=== PATIENT | female | born 1955 | race Caucasian/White ===

== ENCOUNTER 2021-10-20 09:46 | Outpatient (CLI) | payer MEDICARE ==
--- NOTE | 2021-10-20 17:25 | DEXA Report ---
PROCEDURE: Dexa Spine and/or Hip INDICATIONS: DEXA TECHNIQUE: Dual energy x-ray absorptiometry (DXA) was performed on a [employer] System. Regions measur ed are the AP Spine, femoral neck, and if needed forearm. COMPARISON: None. FINDINGS: Lumbar Spine: Bone Mineral Density 1.338 g/cm/cm, T score 1.3, normal Left Hip: Bone Mineral Density 0.873 g/cm/cm, T score -1.1, osteopenia Left Femoral Neck: Bone Mineral Density 0.870 g/cm/cm, T score -1.2, osteopenia (T score greater or equal to -1.0: NORMAL) (T score from -1.1 to -2.4: OSTEOPENIA) (T score less than or equal to -2.5 to: OSTEOPOROSIS) Impression: Left hip osteopenia. Patients with diagnosis of osteoporosis or osteopenia should have regular bone mineral density assess ment. For those eligible for Medicare, routine testing is allowed once every 2 years. Testing frequ ency can be increased for patients who have rapidly progressing disease or for those who are receivin g medical therapy to restore bone mass. Reviewed by: Alfredo Foote MD on 10/20/2021 5:24 PM PDT Approved by: Alfredo Foote MD on 10/20/2021 5:24 PM PDT Station ID: [id number]
== END 2021-10-20 09:47 | disposition home or self-care (01) ==
LOC: DI 09:46
PROVIDERS: ATTEND Internal Medicine
DX: M85.89 Other specified disorders of bone density and structure, multiple sites (principal); N95.8 Other specified menopausal and perimenopausal disorders

== ENCOUNTER 2022-07-22 10:57 | Outpatient (CLI) | payer OTHER ==
--- NOTE | 2022-07-22 14:18 | XRAY Report ---
PROCEDURE: Hand 3 View BILAT INDICATIONS: PAIN IN BOTH HANDS TECHNIQUE: 3 views of both hands acquired. COMPARISON: None. FINDINGS: Bones: No acute fractures or dislocations. No suspicious bony lesions. Moderate degenerative clark es are seen at the first carpometacarpal joints bilaterally. Right greater than left joint space narr owing seen at the triscaphe the joint. No focal osseous erosion. Mild degenerative changes are seen s cattered throughout the interphalangeal joints of the fingers. Mild irregularity of the right fourth distal phalangeal tuft may be related to remote prior trauma. Soft tissues: No suspicious soft tissue calcifications or focal soft tissue swelling. IMPRESSION: Bilateral osteoarthrosis is most notable and moderate in severity at the first carpal metacarpal join ts. No radiographic signs of an inflammatory arthritis. Reviewed by: Deejay Ortiz MD on 07/22/2022 2:17 PM PST Approved by: Deejay Ortiz MD on 07/22/2022 2:17 PM PST Station ID: [id number]
--- NOTE | 2022-07-22 14:21 | XRAY Report ---
PROCEDURE: Shoulder 3 View BILAT INDICATIONS: PAIN IN BOTH SHOULDERS TECHNIQUE: 3 views of each shoulder were acquired. COMPARISON: None. FINDINGS: Bones: No acute fractures or dislocations. No suspicious bony lesions. Visualized ribs appear inta ct. Mild to moderate degenerative changes are seen at the acromioclavicular joints bilaterally. Mild marginal osteophyte formation is seen at the right glenohumeral joint. Minimal spurring of the left i nferior glenoid. Soft tissues: No suspicious soft tissue calcifications. Sternotomy wires are present. IMPRESSION: 1.Mild to moderate right glenohumeral osteoarthrosis and bilateral acromioclavicular osteoarthrosis. 2.No acute osseous abnormality. If symptoms persist or there is continued clinical concern, further e valuation with MRI or CT may be helpful. Reviewed by: Deejay Ortiz MD on 07/22/2022 2:20 PM PST Approved by: Deejay Ortiz MD on 07/22/2022 2:20 PM PST Station ID: [id number]
== END 2022-07-22 10:58 | disposition home or self-care (01) ==
LOC: DI 10:57
PROVIDERS: ATTEND Physician Assistant
DX: M18.0 Bilateral primary osteoarthritis of first carpometacarpal joints (principal); M19.012 Primary osteoarthritis, left shoulder; M19.011 Primary osteoarthritis, right shoulder